=== PATIENT | male | born 1935 | race Caucasian/White ===

== ENCOUNTER → 2016-07-02 | Outpatient (CLI) | payer MEDICARE ==
[~2016-07-02] MED LIST: ALIGN4 MG PO; ANTIVERT **IA12.5 MG PO; CARDURA4 MG PO; FAMOTIDINE20 MG PO; FLAGYL500 MG PO; LOPRESSOR25 MG PO; MULTIVITAMINS1 EAC2 PO; NORCO 5-325 MG1 TAB PO; PRINIVIL OR ZES10 MG PO; PROTONIX40 MG PO; ZOCOR40 MG PO
[2016-07-02 13:01] LABS: INR - (THERAPEUTIC) 1.1 (0.9-1.1); PROTIME 11.4 SECONDS (9.6-11.1)
== END | disposition disaster alternative care site (69) ==
LOC: LGSMG 12:48
PROVIDERS: Student in an Organized Health Care Education/Training Program
DX: I25.10 Atherosclerotic heart disease of native coronary artery without angina pectoris (principal); R10.13 Epigastric pain; R19.7 Diarrhea, unspecified; Z86.39 Personal history of other endocrine, nutritional and metabolic disease; Z79.899 Other long term (current) drug therapy

== ENCOUNTER → 2016-07-03 | Day surgery (SDC) | payer MEDICARE ==
[~2016-07-03] VITALS: Ht 167.6 cm; Wt 89.7 kg
== END ==
LOC: GPOC 07-02 14:00 → GEND 10:28 → GPOC 10:30
PROC: 0DJ08ZZ Inspection of Upper Intestinal Tract, Via Natural or Artificial Opening Endoscopic (ICD-10-PCS; principal; 2016-07-03)
DX: K21.9 Gastro-esophageal reflux disease without esophagitis (principal); K44.9 Diaphragmatic hernia without obstruction or gangrene; A04.7 Enterocolitis due to Clostridium difficile; I25.10 Atherosclerotic heart disease of native coronary artery without angina pectoris; J20.9 Acute bronchitis, unspecified; M19.90 Unspecified osteoarthritis, unspecified site; H61.20 Impacted cerumen, unspecified ear; G47.19 Other hypersomnia; M15.9 Polyosteoarthritis, unspecified; E78.5 Hyperlipidemia, unspecified; G47.00 Insomnia, unspecified; J84.10 Pulmonary fibrosis, unspecified; R35.0 Frequency of micturition; N40.1 Benign prostatic hyperplasia with lower urinary tract symptoms; Z90.49 Acquired absence of other specified parts of digestive tract; Z96.659 Presence of unspecified artificial knee joint; Z79.899 Other long term (current) drug therapy
CPT/HCPCS: J2001; J7030

== ENCOUNTER → 2016-07-24 | Outpatient (CLI) | payer MEDICARE | END | disposition disaster alternative care site (69) | LOC: LGSMG 12:41 | DX: R06.09 Other forms of dyspnea (principal) ==

== ENCOUNTER → 2016-10-12 | Outpatient (CLI) | payer MEDICARE | END | disposition disaster alternative care site (69) | LOC: GRAD 12:12 | DX: R06.09 Other forms of dyspnea (principal); J84.10 Pulmonary fibrosis, unspecified ==

== ENCOUNTER → 2016-10-12 | Outpatient (CLI) | payer MEDICARE | LOC: LGSMG 11:26 | DX: R06.02 Shortness of breath (principal); I10 Essential (primary) hypertension; R06.09 Other forms of dyspnea; R60.9 Edema, unspecified ==

== ENCOUNTER → 2016-11-10 | Outpatient (CLI) | payer MEDICARE ==
--- NOTE | ~2016-11-10 | PUL ---
PATIENT'S NAME: IRMA HANNAH [facility] AGE: 81 Y [address] ROOM: [place] [address] LOCATION: [facility] ADMIT DATE: 11/10/2016 Pulmonary DISCHARGE DATE: FAMILY PHYSICIAN: Farrukh Carrizales MD ATTENDING PHYSICIAN: JOAN AMBROSE NAME OF PROCEDURE: Home sleep test SUMMARY: Patient underwent home sleep testing using a type III device. Patient was studied for a total of 9 hours 10 minutes. In that time there were 158 apneas and 448 hypopneas for an apnea/hypopnea index severely elevated at 66 events per hour. Oxygen saturations ranged from 73-92%. Heart rate ranged from 48 to 90 beats per minute. IMPRESSION: Severe obstructive sleep apnea. PLAN: Patient will receive results from the ordering provider. MD RENO TONEY/ /[id number] dtt: 11/27/16 1301 Enrrique David E. dtd: 11/12/16 1120
== END | disposition disaster alternative care site (69) ==
LOC: GSLP 11-06 14:30
DX: G47.10 Hypersomnia, unspecified (principal); G47.34 Idiopathic sleep related nonobstructive alveolar hypoventilation; G47.33 Obstructive sleep apnea (adult) (pediatric)
CPT/HCPCS: G0399

== ENCOUNTER → 2016-11-15 | Outpatient (CLI) | payer MEDICARE ==
--- NOTE | ~2016-11-15 | PUL ---
PATIENT'S NAME: IRMA HANNAH [facility] AGE: 81 Y [address] ROOM: [place] [address] LOCATION: [facility] ADMIT DATE: 11/15/2016 Pulmonary DISCHARGE DATE: FAMILY PHYSICIAN: Farrukh Carrizales MD ATTENDING PHYSICIAN: Farrukh Carrizales NAME OF PROCEDURE: Sleep study PROCEDURE DATE: 11/15/2016 TECH: JUWAN Perea TEST #: [facility] [place]# [id number] TECHNICAL PARAMETERS: The patient was studied using International 10/20 measuring system. While the patient was studied, there was continuous monitoring of EEG (8 leads), EOG (2 leads), EKG (3 leads), submental EMG (3 leads), tibial (4 leads), respiratory inductive plethysmography (RIP) for thoracic and abdominal effort, oral and nasal airflow with a thermocouple and pressure transducer, and oximetry. The oscillograph technician also performed visual and auditory observations noting things like body position, patient's status, breath sounds, artifact, snoring level and patient comments. Continuous sound was monitored using a 2-way speaker system and video monitoring was performed using an infrared camera. Review of the entire study was performed epoch by epoch utilizing a single epoch and multiple epoch capability sleep system. MEDICAL HISTORY: The patient is an 81-year-old overweight man with daytime sleepiness and snoring. SLEEP STAGE SUMMARY: The patient was studied for 436 minutes of which he slept 397 minutes. He fell asleep in less than a minute and slept for 91% of the night. Sleep architecture revealed a decline in slow wave and REM sleep. RESPIRATORY SUMMARY: Oxygen saturations ranged from 77%-95% and were below 88% for 29 minutes. This study was done to titrate CPAP which was started at 6 cm and titrated to 18 cm with good control of the respiratory events. EKG SUMMARY: Mild sinus bradycardia was noted. Occasional PVCs. LIMB MOVEMENT SUMMARY: No clinically relevant periodic limb movements were noted. SUMMARY: Obstructive sleep apnea responsive to CPAP at 18 cm. PLAN: Suggest CPAP at 18 cm. Patient will receive results from the ordering PATIENT'S NAME: [facility] AGE: 81 Y [address] ROOM: [place] [address] LOCATION: [facility] ADMIT DATE: 11/15/2016 Pulmonary DISCHARGE DATE: FAMILY PHYSICIAN: Farrukh Carrizales MD ATTENDING PHYSICIAN: Farrukh Carrizales provider. MD [facility] /[id number] dtt: 11/27/16 1301 , David Osuna. dtd: 11/18/16 1439
== END | disposition disaster alternative care site (69) ==
LOC: GSLP 20:21
DX: G47.10 Hypersomnia, unspecified (principal); G47.34 Idiopathic sleep related nonobstructive alveolar hypoventilation; G47.33 Obstructive sleep apnea (adult) (pediatric)

== ENCOUNTER → 2016-11-25 | Outpatient (CLI) | payer MEDICARE ==
--- NOTE | ~2016-11-25 | PUL ---
PATIENT'S NAME: IRMA HANNAH [facility] AGE: 81 Y [address] ROOM: [place] [address] LOCATION: [facility] ADMIT DATE: 11/25/2016 Pulmonary DISCHARGE DATE: FAMILY PHYSICIAN: Farrukh Carrizales MD ATTENDING PHYSICIAN: JOAN AMBROSE NAME OF PROCEDURE: Six Minute Walk Test DATE OF PROCEDURE: November 25, 2016 TECH: ATripe, RADIATION PHYSICIST REASON FOR EXAM: Pulmonary fibrosis RESULTS: The test was performed on room air. The patient walked for 850 feet at a pace of 1.61 miles/hour. He had no periods of rest. His oxygen saturation was 96% at the beginning of the test, then dropped to 91% during the test, and was 94% after the test. He had minimal increases in his heart rate and blood pressure. His perceived dyspnea was 4/10 on the Guicho scale. PHYSICIAN INTERPRETATION: The patient has moderate limitation in his exercise capacity with significant desaturations but no hypoxia on room air during exercise JOAN AMBROSE MD RFN/ks /[id number] dtt: 11/26/16 1431 , JOAN AMBROSE dtd: 11/26/16 1315
--- NOTE | ~2016-11-25 | PUL ---
PATIENT'S NAME: IRMA HANNAH [facility] AGE: 81 Y [address] ROOM: [place] [address] LOC[facility]: [facility] ADMIT DATE: 11/25/2016 Pulmonary DISCHARGE DATE: FAMILY PHYSICIAN: Farrukh Carrizales MD ATTENDING PHYSICIAN: JOAN AMBROSE NAME OF PROCEDURE: Pulmonary Function Test DATE OF PROCEDURE: November 25, 2016 TECH: ATripe, PROCESS PLANNER REASON FOR EXAM: Pulmonary fibrosis RESULTS: 1. FVC was 2.2 liters which is 70% of predicted and low, FEV1 was 1.96 liters which is 91% of predicted and normal, and FEV1/FVC was 89% and normal. The flow volume curve was suggestive of restrictive lung disease. After bronchodilator administration FVC increased to 2.21 liters which is a less than 1% increase and FEV1 remain 1.96 liters. FEV1/FVC was 89%. 2. Two diffusion capacity DLCO was 11.5 with an adjusted DLCO of 11.6 which is 63% of predicted and normal. 3. Total lung capacity was 4.15 liters which is 81% of predicted and normal and residual volume was 1.28 liters which is 53% of predicted and low. PHYSICIAN INTERPRETATION: The patient has no airflow limitation and no significant bronchodilator response. His diffusion capacity is normal. There is no evidence of restrictive lung disease as seen on the lung volumes. However, his FVC was below the lower limit of normal. Clinical correlation is advised. MD RODNEY GIRARD/jasmine /[id number] dtt: 11/26/16 1428 , JOAN AMBROSE dtd: 11/26/16 1313
== END | disposition disaster alternative care site (69) ==
LOC: GRTH 11-23 09:00
DX: J84.10 Pulmonary fibrosis, unspecified (principal); R06.09 Other forms of dyspnea; R06.02 Shortness of breath